=== PATIENT | male | born 1985 | race Caucasian/White ===

== ENCOUNTER 2016-12-27 10:14 | Emergency (ER) | payer OTHER ==
[2016-12-27] MEDS ORDERED: SODIUM CHLORIDE 0.9% 1,000 ML IV STA (10:56)
[2016-12-27] MEDS ORDERED: SODIUM CHLORIDE 0.9% 500 ML IV STA (10:56)
[2016-12-27] MEDS ORDERED: LORazepam 2 MG/ML SYRINGE IV STA (10:56)
--- NOTE | 2016-12-27 10:58 | ED ---
General Adult HPI - General Chief complaint: Nausea/Vomiting/Diarrhea Stated complaint: withdrawls Time Seen by Provider: 12/27/16 10:51 Source: patient, RN notes reviewed Mode of arrival: wheelchair Limitations: no limitations - History of Present Illness Initial comments: Patient is a 31-year-old male who presents emergency room today with a chief complaint of symptoms of nausea vomiting over the last 3 days. Patient does admit to being diabetic. States his blood sugar was 241. States took 3 units of insulin prior to come to the emergency room. He does admit that he has been withdrawing from Suboxone. Patient denies any signs of blood in the emesis. He denies any specific abdominal pain but admits to cramps. Patient denies any other complaints or symptoms currently. Patient denies any recent fever, chills , shortness of breath, chest pain, back pain, numbness or tingling, dysuria or hematuria, constipation or diarrhea, headaches or visual changes, or any other complaints. - Related Data Home Medications Medication Instructions Recorded Confirmed Lisinopril [Prinivil] 10 mg PO DAILY 04/30/16 12/27/16 Insulin Degludec [Tresiba 40 unit SQ HS 12/27/16 12/27/16 Flextouch U-100] Insulin Lispro [humaLOG Kwikpen] See Protocol SQ ACHS 12/27/16 12/27/16 Previous Rx's Medication Instructions Recorded LORazepam [Ativan] 1 mg PO TID #10 tab 12/27/16 Ondansetron Odt [Zofran ODT] 4 mg PO Q8HR PRN #15 tab 12/27/16 cloNIDine HCL [Catapres] 0.1 mg PO BID #6 tab 12/27/16 Allergies Allergy/AdvReac Type Severity Reaction Status Date / Time No Known Allergies Allergy Verified 12/27/16 10:27 Review of Systems ROS Statement: Those systems with pertinent positive or pertinent negative responses have been documented in the HPI. ROS Other: All systems not noted in ROS Statement are negative. Past Medical History Past Medical History: Diabetes Mellitus History of Any Multi-Drug Resistant Organisms: None Reported Past Surgical History: Appendectomy Additional Past Surgical History / Comment(s): detatched retina repair right eye Past Psychological History: No Psychological Hx Reported Smoking Status: Former smoker Past Alcohol Use History: None Reported Past Drug Use History: None Reported General Exam - General Exam Comments Initial Comments: General: The patient is awake and alert, in mild distress. Eye: Pupils are equal, round and reactive to light, extra-ocular movements are intact. No nystagmus. There is normal conjunctiva bilaterally. No signs of icterus. Ears, nose, mouth and throat: There are moist mucous membranes and no oral lesions. Neck: The neck is supple, there is no tenderness or JVD. Cardiovascular: There is a regular rate and rhythm. No murmur, rub or gallop is appreciated. Respiratory: Lungs are clear to auscultation, respirations are non-labored, breath sounds are equal. No wheezes, stridor, rales, or rhonchi. Gastrointestinal: Soft, non-distended, non-tender abdomen without masses or organomegaly noted. There is no rebound or guarding present. No CVA tenderness. Bowel sounds are unremarkable. Musculoskeletal: Normal ROM, no tenderness. Strength 5/5. Sensation intact. Pulses equal bilaterally 2+. Neurological: A&O x 3. CN II-XII intact, There are no obvious motor or sensory deficits. Coordination appears grossly intact. Speech is normal. Skin: Skin is warm and dry and no rashes or lesions are noted. Psychiatric: Cooperative, appropriate mood & affect, normal judgment. Limitations: no limitations Course Vital Signs 12/27/16 12/27/16 10:22 12:24 Temperature 97.2 F L Pulse Rate 88 80 Respiratory 26 H 20 Rate Blood Pressure 155/78 155/89 O2 Sat by Pulse 100 98 Oximetry Medical Decision Making - Medical Decision Making Patient reexamined at this time shows no signs of distress. Patient's acetone negative. Patient's blood sugar 222 years emergency room. Patient given a liter half boluses feeling better. Patient will be discharged home with medications for withdrawal symptoms of Zofran, Ativan, and Catapres for his symptoms. He is advised follow-up over the next 2 days and advised return if any symptoms increase or worsen. Patient states understanding and is in agreement. - Lab Data Result diagrams: 12/27/16 11:22 12/27/16 11:22 Lab Results 12/27/16 12/27/16 Range/Units 11:22 11:22 WBC 9.5 (3.8-10.6) k/uL RBC 5.01 (4.30-5.90) m/uL Hgb 14.5 (13.0-17.5) gm/dL Hct 43.3 (39.0-53.0) % MCV 86.3 (80.0-100.0) fL MCH 29.0 (25.0-35.0) pg MCHC 33.6 (31.0-37.0) g/dL RDW 11.9 (11.5-15.5) % Plt Count 341 (150-450) k/uL Neutrophils % 76 % Lymphocytes % 18 % Monocytes % 4 % Eosinophils % 1 % Basophils % 0 % Neutrophils # 7.2 (1.3-7.7) k/uL Lymphocytes # 1.7 (1.0-4.8) k/uL Monocytes # 0.4 (0-1.0) k/uL Eosinophils # 0.1 (0-0.7) k/uL Basophils # 0.0 (0-0.2) k/uL Sodium 143 (137-145) mmol/L Potassium 4.0 (3.5-5.1) mmol/L Chloride 105 (98-107) mmol/L Carbon Dioxide 22 (22-30) mmol/L Anion Gap 16 mmol/L BUN 14 (9-20) mg/dL Creatinine 1.10 (0.66-1.25) mg/dL Est GFR (MDRD) Af Amer >60 (>60 ml/min/1.73 sqM) Est GFR (MDRD) Non-Af >60 (>60 ml/min/1.73 sqM) Glucose 222 H (74-99) mg/dL Calcium 10.2 (8.4-10.2) mg/dL Total Bilirubin 0.8 (0.2-1.3) mg/dL AST 21 (17-59) U/L ALT 32 (21-72) U/L Alkaline Phosphatase 69 (38-126) U/L Total Protein 7.2 (6.3-8.2) g/dL Albumin 4.4 (3.5-5.0) g/dL Lipase 42 (23-300) U/L Acetone, Qual Negative (Negative) Disposition Clinical Impression: Nausea & vomiting, Opiate withdrawal Disposition: HOME SELF-CARE Condition: Good Instructions: Opioid Withdrawal (ED) Additional Instructions: Please use medication as discussed. Please follow-up with family doctor in the next 2 days of symptoms have not improved. Please return to emergency room if the symptoms increase or worsen or for any other concerns. Prescriptions: LORazepam [Ativan] 1 mg PO TID #10 tab Ondansetron Odt [Zofran ODT] 4 mg PO Q8HR PRN #15 tab PRN Reason: Nausea cloNIDine HCL [Catapres] 0.1 mg PO BID #6 tab Time of Disposition: 12:27
[2016-12-27] MEDS: ONDANSETRON 4 MG/2 ML VIAL IVP STA ×2 (11:19→12:55)
[2016-12-27 11:41] LABS: Basophils % (A) 0 %; CH 30.2; CHCM 35.1; Eosinophils # (A) 0.1 k/uL (0-0.7); Eosinophils % (A) 1 %; HCT 43.3 % (39.0-53.0); HDW 2.49; HGB 14.5 gm/dL (13.0-17.5); Luc # (Auto) 0.08; Luc % (Auto) 1; Lymphocytes # (A) 1.7 k/uL (1.0-4.8); Lymphocytes % (A) 18 %; MCHC 33.6 g/dL (31.0-37.0); MCV 86.3 fL (80.0-100.0); Monocytes # (A) 0.4 k/uL (0-1.0); Monocytes % (A) 4 %; Neutrophils # (A) 7.2 k/uL (1.3-7.7); Neutrophils % (A) 76 %; RBC 5.01 m/uL (4.30-5.90); RDW 11.9 % (11.5-15.5); WBC 9.5 k/uL (3.8-10.6); WBC (Perox) 9.67
[2016-12-27 11:56] LABS: ALT 32 U/L (21-72); AST 21 U/L (17-59); Alkaline Phosphatase 69 U/L (38-126); Anion Gap 16 mmol/L; Blood Urea Nitrogen 14 mg/dL (9-20); Calcium 10.2 mg/dL (8.4-10.2); Carbon Dioxide 22 mmol/L (22-30); Chloride 105 mmol/L (98-107); Glucose 222 mg/dL (74-99); Non-African American GFR(MDRD) >60 (>60 ml/min/1.73 sqM); Sodium 143 mmol/L (137-145); Total Bilirubin 0.8 mg/dL (0.2-1.3); Total Protein 7.2 g/dL (6.3-8.2)
[2016-12-27 13:36] LABS: Appearance,Urine Clear (Clear); Bilirubin,Urine Negative (Negative); Glucose,Urine (UA) 3+ (Negative); Leukocyte Esterase,Urine Negative (Negative); Mucus,Urine Rare /hpf; Nitrite,Urine Negative (Negative); PH, Urine 7.5 (5.0-8.0); Particle Count 1708; Protein,Urine 2+ (Negative); RBC,Urine 2 /hpf (0-5); Specific Gravity,Urine 1.014 (1.001-1.035); UA Billing (MACRO vs. MICRO) MICRO; Urobilinogen,Urine <2.0 mg/dL (<2.0); WBC,Urine 2 /hpf (0-5)
[2016-12-27 13:39] LABS: Ketones,Urine 2+ (Negative)
[2016-12-27 14:04] VITALS: BP 165/90; PULSE 72; RESP 18; TEMP 99.2
== END 2016-12-27 14:04 | disposition home or self-care (01) ==
LOC: EC 10:14
DX: F11.23 Opioid dependence with withdrawal (principal); E11.9 Type 2 diabetes mellitus without complications; Z79.4 Long term (current) use of insulin; Z79.899 Other long term (current) drug therapy; Z87.891 Personal history of nicotine dependence
CPT/HCPCS: 36415; 80053; 82009; 83690; 85025; 81001; 99284; 96374; 96375; 96361 ×2; J2060; J2405

== ENCOUNTER 2017-05-01 17:13 | Emergency (ER) | payer OTHER ==
[2017-05-01] MEDS ORDERED: ONDANSETRON 4 MG/2 ML VIAL IVP STA ×2 (17:52→19:02)
[2017-05-01] MEDS ORDERED: LORazepam 2 MG/ML SYRINGE IV STA ×2 (17:52→19:40)
[2017-05-01] MEDS ORDERED: SODIUM CHLORIDE 0.9% 500 ML IV STA (17:52)
[2017-05-01] MEDS ORDERED: SODIUM CHLORIDE 0.9% 1,000 ML IV STA (17:52)
--- NOTE | 2017-05-01 18:00 | ED ---
General Adult HPI - General Chief complaint: Abdominal Pain Stated complaint: withdrawls Time Seen by Provider: 05/01/17 17:48 Source: patient, RN notes reviewed Mode of arrival: wheelchair Limitations: no limitations - History of Present Illness Initial comments: Patient 32-year-old male who presents emergency room today with chief complaint of "withdrawal symptoms" 3 days. Patient does admit that he is on Suboxone. States last dose was 3 days ago and states she's been having symptoms of nausea , vomiting, diarrhea. Denies any signs of blood in the stool or emesis. Does admit to abdominal pain diffusely throughout the abdomen. Patient does admit that he's had similar symptoms in the past when he got through withdrawal not having the Suboxone. He denies any other complaints or symptoms at this time. Patient denies any recent fever, chills, shortness of breath, chest pain, back pain, numbness or tingling, dysuria or hematuria, constipation, headaches or visual changes, or any other complaints. - Related Data Home Medications Medication Instructions Recorded Confirmed Lisinopril [Prinivil] 10 mg PO DAILY 04/30/16 12/27/16 Insulin Degludec [Tresiba 40 unit SQ HS 12/27/16 12/27/16 Flextouch U-100] Insulin Lispro [humaLOG Kwikpen] See Protocol SQ ACHS 12/27/16 12/27/16 Previous Rx's Medication Instructions Recorded LORazepam [Ativan] 1 mg PO TID #10 tab 12/27/16 Ondansetron Odt [Zofran ODT] 4 mg PO Q8HR PRN #15 tab 12/27/16 cloNIDine HCL [Catapres] 0.1 mg PO BID #6 tab 12/27/16 LORazepam [Ativan] 1 mg PO TID 15 Days 05/01/17 Ondansetron Odt [Zofran ODT] 4 mg PO Q8HR PRN #20 tab 05/01/17 cloNIDine HCL [Catapres] 0.2 mg PO BID #6 tablet 05/01/17 Allergies Allergy/AdvReac Type Severity Reaction Status Date / Time No Known Allergies Allergy Verified 12/27/16 10:27 Review of Systems ROS Statement: Those systems with pertinent positive or pertinent negative responses have been documented in the HPI. ROS Other: All systems not noted in ROS Statement are negative. Past Medical History Past Medical History: Diabetes Mellitus History of Any Multi-Drug Resistant Organisms: None Reported Past Surgical History: Appendectomy Additional Past Surgical History / Comment(s): detatched retina repair right eye Past Psychological History: No Psychological Hx Reported Smoking Status: Former smoker Past Alcohol Use History: None Reported Past Drug Use History: None Reported General Exam - General Exam Comments Initial Comments: General: The patient is awake and alert, in no distress, and does not appear acutely ill. Eye: Pupils are equal, round and reactive to light, extra-ocular movements are intact. No nystagmus. There is normal conjunctiva bilaterally. No signs of icterus. Ears, nose, mouth and throat: There are moist mucous membranes and no oral lesions. Neck: The neck is supple, there is no tenderness or JVD. Cardiovascular: There is a regular rate and rhythm. No murmur, rub or gallop is appreciated. Respiratory: Lungs are clear to auscultation, respirations are non-labored, breath sounds are equal. No wheezes, stridor, rales, or rhonchi. Gastrointestinal: normal appearance of the abdomen. Normal bowel sounds. Abdomen soft on palpation. Patient does have tenderness mildly throughout the abdomen and lower quadrant. No rebound tenderness. No guarding. No CVA tenderness. Musculoskeletal: Normal ROM, no tenderness. Strength 5/5. Sensation intact. Pulses equal bilaterally 2+. Neurological: A&O x 3. CN II-XII intact, There are no obvious motor or sensory deficits. Coordination appears grossly intact. Speech is normal. Skin: Skin is warm and dry and no rashes or lesions are noted. Psychiatric: Cooperative, appropriate mood & affect, normal judgment. Limitations: no limitations Course Vital Signs 05/01/17 17:40 Temperature 99.5 F Pulse Rate 102 H Respiratory 22 Rate Blood Pressure 166/81 O2 Sat by Pulse 99 Oximetry Medical Decision Making - Medical Decision Making patient reexamined at this time shows no signs of distress. He sitting up comfortably in the stretcher. Abdomen soft nontender. His labs been reviewed. Does show elevated white count 16,000. He does admit to symptoms of nausea vomiting diarrhea. This felt a reactive to this. Patient's acetone negative. Blood sugar 226. Patient's BUN creatinine mildly elevated showing signs of dehydration. Given a liter half of fluids here in the emergency room to the IV. Patient is feeling better. Patient will be discharged home with prescription for Zofran, clonidine, Ativan for his withdrawal symptoms. Is advised follow-up as an doctor over the next 2 days. Advised return here to emergency room if any symptoms increase worsen or for any other concerns. Patient states understanding and is in agreement. - Lab Data Result diagrams: 05/01/17 18:00 05/01/17 18:00 Lab Results 05/01/17 05/01/17 05/01/17 Range/Units 18:00 18:00 19:07 WBC 16.4 H (3.8-10.6) k/uL RBC 4.94 (4.30-5.90) m/uL Hgb 14.6 (13.0-17.5) gm/dL Hct 43.6 (39.0-53.0) % MCV 88.2 (80.0-100.0) fL MCH 29.6 (25.0-35.0) pg MCHC 33.6 (31.0-37.0) g/dL RDW 12.4 (11.5-15.5) % Plt Count 438 (150-450) k/uL Neutrophils % 84 % Lymphocytes % 11 % Monocytes % 3 % Eosinophils % 1 % Basophils % 0 % Neutrophils # 13.8 H (1.3-7.7) k/uL Lymphocytes # 1.8 (1.0-4.8) k/uL Monocytes # 0.5 (0-1.0) k/uL Eosinophils # 0.2 (0-0.7) k/uL Basophils # 0.0 (0-0.2) k/uL Sodium 140 (137-145) mmol/L Potassium 4.1 (3.5-5.1) mmol/L Chloride 104 (98-107) mmol/L Carbon Dioxide 18 L (22-30) mmol/L Anion Gap 18 mmol/L BUN 22 H (9-20) mg/dL Creatinine 1.26 H (0.66-1.25) mg/dL Est GFR (MDRD) Af Amer >60 (>60 ml/min/1.73 sqM) Est GFR (MDRD) Non-Af >60 (>60 ml/min/1.73 sqM) Glucose 226 H (74-99) mg/dL Calcium 10.7 H (8.4-10.2) mg/dL Total Bilirubin 1.2 (0.2-1.3) mg/dL AST 18 (17-59) U/L ALT 18 L (21-72) U/L Alkaline Phosphatase 83 (38-126) U/L Total Protein 8.1 (6.3-8.2) g/dL Albumin 4.8 (3.5-5.0) g/dL Amylase 51 (30-110) U/L Lipase 48 (23-300) U/L Urine Color Yellow Urine Appearance Clear (Clear) Urine pH 5.5 (5.0-8.0) Ur Specific [place] 1.018 (1.001-1.035) Urine Protein 2+ H (Negative) Urine Glucose (UA) 3+ H (Negative) Urine Ketones 2+ H (Negative) Urine Blood Trace H (Negative) Urine Nitrite Negative (Negative) Urine Bilirubin Negative (Negative) Urine Urobilinogen <2.0 (<2.0) mg/dL Ur Leukocyte Esterase Negative (Negative) Urine RBC 2 (0-5) /hpf Urine WBC 2 (0-5) /hpf Urine Bacteria Rare H (None) /hpf Hyaline Casts 13 H (0-2) /lpf Urine Mucus Few H (None) /hpf Acetone, Qual Negative (Negative) Disposition Clinical Impression: Opiate withdrawal Disposition: HOME SELF-CARE Condition: Good Instructions: Opioid Withdrawal (ED) Additional Instructions: Please use medication as discussed. Please follow-up with family doctor in the next 2 days of symptoms have not improved. Please return to emergency room if the symptoms increase or worsen or for any other concerns. Prescriptions: cloNIDine HCL [Catapres] 0.2 mg PO BID #6 tablet LORazepam [Ativan] 1 mg PO TID 15 Days Ondansetron Odt [Zofran ODT] 4 mg PO Q8HR PRN #20 tab PRN Reason: Nausea Referrals: Nonstaff,Physician [Primary Care Provider] - 1-2 days Time of Disposition: 19:42
[2017-05-01 18:35] LABS: Basophils % (A) 0 %; CH 30.4; CHCM 34.5; Eosinophils # (A) 0.2 k/uL (0-0.7); Eosinophils % (A) 1 %; HCT 43.6 % (39.0-53.0); HDW 2.36; HGB 14.6 gm/dL (13.0-17.5); Luc # (Auto) 0.12; Luc % (Auto) 1; Lymphocytes # (A) 1.8 k/uL (1.0-4.8); Lymphocytes % (A) 11 %; MCH 29.6 pg (25.0-35.0); MCHC 33.6 g/dL (31.0-37.0); MCV 88.2 fL (80.0-100.0); Mean Platelet Volume 7.4; Monocytes # (A) 0.5 k/uL (0-1.0); Monocytes % (A) 3 %; Neutrophils # (A) 13.8 k/uL (1.3-7.7); Neutrophils % (A) 84 %; RBC 4.94 m/uL (4.30-5.90); RDW 12.4 % (11.5-15.5); WBC 16.4 k/uL (3.8-10.6); WBC (Perox) 16.06
[2017-05-01 18:56] LABS: ALT 18 U/L (21-72); AST 18 U/L (17-59); Alkaline Phosphatase 83 U/L (38-126); Amylase 51 U/L (30-110); Anion Gap 18 mmol/L; Blood Urea Nitrogen 22 mg/dL (9-20); Calcium 10.7 mg/dL (8.4-10.2); Carbon Dioxide 18 mmol/L (22-30); Chloride 104 mmol/L (98-107); Glucose 226 mg/dL (74-99); Non-African American GFR(MDRD) >60 (>60 ml/min/1.73 sqM); Potassium 4.1 mmol/L (3.5-5.1); Sodium 140 mmol/L (137-145); Total Bilirubin 1.2 mg/dL (0.2-1.3); Total Protein 8.1 g/dL (6.3-8.2)
[2017-05-01 19:32] LABS: Appearance,Urine Clear (Clear); Bacteria,Urine Rare /hpf; Bilirubin,Urine Negative (Negative); Glucose,Urine (UA) 3+ (Negative); Leukocyte Esterase,Urine Negative (Negative); Mucus,Urine Few /hpf; Nitrite,Urine Negative (Negative); PH, Urine 5.5 (5.0-8.0); Particle Count 3846; Protein,Urine 2+ (Negative); RBC,Urine 2 /hpf (0-5); Specific Gravity,Urine 1.018 (1.001-1.035); UA Billing (MACRO vs. MICRO) MICRO; Urobilinogen,Urine <2.0 mg/dL (<2.0); WBC,Urine 2 /hpf (0-5)
[2017-05-01 19:35] LABS: Ketones,Urine 2+ (Negative)
[2017-05-01 20:52] VITALS: BP 158/91; PULSE 91; RESP 20; TEMP 100.4
== END 2017-05-01 20:42 | disposition home or self-care (01) ==
LOC: EC 17:13
DX: F11.23 Opioid dependence with withdrawal (principal); R10.84 Generalized abdominal pain; R11.2 Nausea with vomiting, unspecified; R19.7 Diarrhea, unspecified; E11.9 Type 2 diabetes mellitus without complications; Z87.891 Personal history of nicotine dependence; Z79.4 Long term (current) use of insulin; Z79.899 Other long term (current) drug therapy
CPT/HCPCS: 99284; 96374; 96375; 96376 ×2; 96361; 36415; 80053; 82150; 82009; 83690; 85025; 81001; J2060; J2405